=== PATIENT | male | born 1945 | race Caucasian/White ===

== ENCOUNTER 2016-11-09 09:28 | Outpatient (CLI) | payer OTHER ==
[~2016-11-09 09:28] MED LIST: MULTIPLE VITAMIN PO; SUPPLEMENTS PO
== END 2016-11-09 23:00 ==
LOC: LAB SRH 09:28
DX: Z01.812 Encounter for preprocedural laboratory examination (principal); M17.12 Unilateral primary osteoarthritis, left knee; D50.9 Iron deficiency anemia, unspecified
CPT/HCPCS: 90001; 90074; 90155; 91004

== ENCOUNTER 2016-12-10 07:40 | Outpatient (CLI) | payer OTHER ==
--- NOTE | 2016-12-10 11:19 | DIAGNOSTIC IMAGING REPORT ---
PROCEDURE: CT IAC/PF/ORBIT W/WO CONTRAST INDICATION: VISUAL CHANGES TECHNIQUE: Thin slice axial CT images were obtained through the orbits before and after uncomplicated administration of 100 ml Isovue 370 IV contrast. Coronal and sagittal reformations were obtained. COMPARISON: MRI of the brain 02/13/2016 and 12/05/2010 FINDINGS: Orbits: The globes are normal shape and symmetric. Smooth margins, no anterior or posterior chamber masses. No macular calcification. Normal lenses. Normal retrobulbar fat without inflammation. No masses. Optic nerves are normal without mass or enhancement. Extraocular muscles are symmetric without unusual enlargement or enhancement. Lacrimal glands are symmetric bilaterally. No periorbital inflammation or soft tissue thickening. Sinuses: There is dependent, partial opacification of the left sphenoid sinus which contains a thick material with wispy central calcification. Moderate osteitis of the sphenoid sinus involving the caudal and the lateral mccall. The sinus outflow tracts shows mild mucosal thickening but is patent. The right sphenoid sinus is normal without mucosal thickening or fluid. Maxillary sinuses, frontal sinuses, and ethmoid air cells are patent with only mild mucosal thickening of the ethmoids. Outflow tracts are patent. The nasal passages are clear. Bones: The bony orbits are intact. The sphenoid bone demonstrates normal morphology and the optic foramen and superior orbital fissure morphology appears normal bilaterally. No acute facial bone fractures. Mild inward bowing of the right zygomatic arch may represent a remote, healed fracture. Temporomandibular joints appear grossly normal. Intracranial soft tissues: The visible portion of the brain is normal without mass. No masses in the region of the optic chiasm. Intracranial vasculature appears grossly normal as is visualized. Cavernous sinus morphology is normal. Scattered, minor atherosclerotic calcification is present. Extracranial soft tissues: No suspicious mass. Musculature appears normal. Fat planes are normally preserved. The airway is patent. IMPRESSION: 1. No abnormalities of the left globe or orbit. 2. 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 Given its persistence, atypical infections such as fungal infection should be considered. 3. If there are further visual concerns, MR of the brain may be useful.
== END 2016-12-10 23:00 ==
LOC: CT SRH 07:40
DX: H53.9 Unspecified visual disturbance (principal); J32.3 Chronic sphenoidal sinusitis

== ENCOUNTER 2016-12-14 10:51 | Outpatient (CLI) | payer OTHER ==
--- NOTE | 2016-12-14 13:24 | DIAGNOSTIC IMAGING REPORT ---
PROCEDURE: MR BRAIN W/WO CONTRAST INDICATION: VISUAL CHANGES TECHNIQUE: Multiplanar multisequence MRI imaging of the brain without contrast. Post administration of 20 ml ProHance gadolinium based IV contrast, three plane T1 fat sat sequences were obtained. COMPARISON: Brain MRI 02/13/2016 FINDINGS: Sulci and ventricular system are normal. Stable minor white matter chronic ischemic changes bilaterally. There is no acute CVA, hemorrhage, mass or midline shift. Normal vascular flow voids. Chronic mild left sphenoid sinus disease. Mastoids are clear. IMPRESSION: 1. No acute intracranial abnormality 2. Minor white matter chronic ischemic changes, stable 3. Chronic mild left sphenoid sinus disease
== END 2016-12-14 23:00 ==
LOC: MRI SRH 10:51
DX: H53.9 Unspecified visual disturbance (principal); J32.9 Chronic sinusitis, unspecified

== ENCOUNTER 2017-02-05 14:58 | Outpatient (CLI) | payer OTHER ==
--- NOTE | 2017-02-05 15:41 | DIAGNOSTIC IMAGING REPORT ---
PROCEDURE: CT SINUS/FACIAL BONES W/O CONT CLINICAL INDICATION: LEFT SPHENOID SINUSITIS TECHNIQUE: Noncontrast axial images with coronal reformations. COMPARISON: CT temporal bones 12/10/2016 and brain MRI's 02/13/2016 and 12/05/2010.. FINDINGS: There is no change in the left sphenoid sinus mucosal thickening with central calcifications and reactive osteitis primarily involving the lateral mccall. Remaining paranasal sinuses are clear. Ostiomeatal units are patent. Nasal septum is essentially midline. IMPRESSION: 1. Longstanding chronic left sphenoid sinus disease with central calcification reactive osteitis. Consider atypical infection such as fungal infection. All CT scans at this facility use dose modulation, iterative reconstruction, and/or weight-based dosing when appropriate to reduce radiation dose to as low as reasonably achievable.
== END 2017-02-05 23:00 | disposition home or self-care (01) ==
LOC: CT SRH 14:58
DX: J32.3 Chronic sphenoidal sinusitis (principal)